=== PATIENT | female | born 1975 | race Two or more races ===

== ENCOUNTER 2018-01-01 10:45 | Emergency (ER) | payer OTHER ==
[~2018-01-01] VITALS: Ht 167.6 cm; Wt 72.7 kg
[2018-01-01 10:52] VITALS: BP 149/98
[2018-01-01] MEDS ORDERED: KEFLEX500 M1 PO (11:23)
== END 2018-01-01 11:40 | disposition home or self-care (01) | DRG 605 ==
LOC: ED 10:45
DX: S61.211A Laceration without foreign body of left index finger without damage to nail, initial encounter (principal); W26.0XXA Contact with knife, initial encounter; Y93.89 Activity, other specified; Y92.89 Other specified places as the place of occurrence of the external cause

== ENCOUNTER 2019-06-05 18:02 | Emergency (ER) | payer OTHER ==
[~2019-06-05] VITALS: Ht 167.6 cm; Wt 67.8 kg
[~2019-06-05 18:02] MED LIST: KEFLEX500 M1 PO
[2019-06-05] MEDS ORDERED: MOTRIN800 MG PO (19:02)
[2019-06-05 19:15] VITALS: BP 128/74
== END 2019-06-05 19:34 | disposition home or self-care (01) | DRG 563 ==
LOC: ED 18:02
DX: S83.91XA Sprain of unspecified site of right knee, initial encounter (principal); S93.501A Unspecified sprain of right great toe, initial encounter; W18.30XA Fall on same level, unspecified, initial encounter; Y92.69 Other specified industrial and construction area as the place of occurrence of the external cause; Y99.9 Unspecified external cause status